=== PATIENT | male | born 1965 | race Caucasian/White ===

== ENCOUNTER 2024-03-20 13:40 | Inpatient (IN) | payer OTHER, SELFPAY ==
[2024-03-20] VITALS (12 sets, daily range): BP systolic 113–142; BP diastolic 63–83; PULSE 79–115; RESP 12–18; TEMP 36.8–37.5; O2SAT 97–100; BMI 29.7; BMI 30.1
--- NOTE | 2024-03-20 14:03 | ECG_ITS ---
Test Reason : QTC INTERVALS Blood Pressure : / mmHG Vent. Rate : 090 BPM Atrial Rate : 090 BPM P-R Int : 150 ms QRS Dur : 068 ms QT Int : 332 ms P-R-T Axes : 050 039 028 degrees QTc Int : 406 ms Normal sinus rhythm Normal ECG No previous ECGs available Referred By: Marlena Lawler Electronically Signed By:Zaki Guillen
--- NOTE | 2024-03-20 14:14 | ED.GIBLEED ---
HPI - GI Bleed General Chief complaint: GI Bleed Stated complaint: BLOOD IN VOMIT ABD PAIN Source: patient and old records reviewed Mode of arrival: EMS Limitations: no limitations History of Present Illness ED Provider: TREMAINE MAX Narrative: 58 yo male with PMH of cirrhosis has pancytopenia reports related to Hep C was treated and notes he recently tested clear (no prior EGD or GIB, no dx of varices, no prior paracentesis but has had ascites) - prior IVDA managed with suboxone now, mood disorder, PTSD, SI attempts. He was just transferred from [facility] to [facility] for psychiatric care. He has not been on lactulose, spironolactone or his usual meds for a while and they were not restarted on his admission. He was put on ibuprofen which he does not normally take at home - he is not on aspirin or thinners. After lunch today he notes he didn't feel great and vomited a large amount of blood with clots x 1. He has no abdominal pain. EMS did have picture showing large amount of blood in toilet with clots. hemoglobin 7/6 9.1, plts 76 section 21 from Piedad Smith MD complaint: gross hematemesis Onset (ago): hour(s) (2) Severity: moderate Relieving factors: none Exacerbating factors: none Context: liver disease Associated symptoms: denies other symptoms Treatments Prior to Arrival: none Related Data Allergies Allergy/AdvReac Type Severity Reaction Status Date / Time haloperidol [From Haldol] AdvReac Muscle Verified 03/20/24 13:57 cramps risperidone [From Risperdal] AdvReac Muscle Verified 03/20/24 13:57 cramps Review of Systems Review of Systems: Constitutional : No Weight loss, No Fever, No Chills ENT/Mouth : No sore throat, No Rhinorrhea Eyes: No Swelling, No Redness Cardiovascular : No Chest Pain, No SOB, NoEdema Respiratory : No Cough, No Sputum, No Wheezing Gastrointestinal : Positive Nausea, Positive Vomiting, no Diarrhea, no abdominal Pain, No Hematochezia, No Melena, pos hematochezia Genitourinary : No Dysuria, No Urinary Frequency, No Hematuria, No Urgency Musculoskeletal : No joint pain, No Myalgias, No Joint Swelling Skin : No Skin Lesions, No rash Neuro : No Weakness, No Numbness, No Dizziness, No Headache Psych : pos Anxiety/Panic, pos Depression All other systems reviewed and are negative. [facility] Social History Social History Advance Directives: No Advance Directives Information Provided: No Do you have a plan to hurt others: No Plan Physical Exam Vital Signs: Vital Signs: Last Vital Signs Temp 98.3 F 03/20/24 13:58 Pulse 103 H 03/20/24 13:58 Resp 17 03/20/24 13:58 BP 118/74 03/20/24 13:58 Pulse Ox 97 03/20/24 13:58 O2 Del Method Room Air 03/20/24 13:58 BMI result Body Mass Index 29.7 Appearance: Alert. Oriented X3. No acute distress. Eyes: Pupils equal, round and reactive to light. ENT: Pharynx normal. Dried blood around mouth Neck: Normal inspection. Neck supple. CVS: tachcyardic heart rate and rhythm. Pulses normal. Respiratory: No respiratory distress. Breath sounds normal. Abdomen: Soft and nontender. moderate ascites noted Rectal: refuses Skin: Skin warm and dry. Normal skin color. Normal skin turgor. Extremities: pitting edema 1+ bilateral lower extremity edema. No calf ttp Neuro: Oriented X 3. No motor deficit. No sensory deficit. Course Course Course Narrative: fentanyl for chronic R foot pain Medications Administered Generic Name Dose Route Start Last Admin Trade Name Freq PRN Reason Stop Dose Admin Pantoprazole Sodium 80 mg/ 100 mls @ 10 mls/hr 03/20/24 14:30 03/20/24 14:42 Sodium Chloride IV 8 mg/hr .Q10H ANNA 10 mls/hr Administration 8 MG/HR Ceftriaxone Sodium 1 gm/ 50 mls @ 100 mls/hr 03/20/24 14:40 03/20/24 14:57 Sodium Chloride IV 03/20/24 15:09 100 mls/hr ONCE ONE Administration Discontinued Medications Generic Name Dose Route Start Last Admin Trade Name Freq PRN Reason Stop Dose Admin Octreotide Acetate 50 mcg 03/20/24 14:40 03/20/24 15:00 Octreotide Acetate 100 Mcg/Ml Ampul IVPUSH 03/20/24 14:41 50 mcg ONCE ONE Administration Ondansetron HCl 4 mg 03/20/24 14:05 03/20/24 14:41 Ondansetron Hcl 4 Mg/2 Ml Vial IVPUSH 03/20/24 14:06 4 mg ONCE ONE Administration Pantoprazole Sodium 80 mg 03/20/24 14:15 03/20/24 14:41 Pantoprazole Sodium 40 Mg/10 Ml Vial IVPUSH 03/20/24 14:16 80 mg ONCE ONE Administration Medical Decision Making Medical Decision Making [facility] Narrative: 58 yo male with PMH of cirrhosis has pancytopenia reports related to Hep C was treated and notes he recently tested clear (no prior EGD or GIB, no dx of varices, no prior paracentesis but has had ascites) - prior IVDA managed with suboxone now, mood disorder, PTSD, SI attempts here with UGIB at this time it is unclear if he has varices, PUD or what the source of bleeding is. Will start on protonix, labs, IV lines x 2, albumin x 2 for now, empiric ceftriaxone (not for infection or severe sepsis but for prophylaxis), octreotide. Call to GI and Dr. Camarillo to come see patient. Differential Diagnosis Differential Diagnoses: The differential diagnosis associated with the presentation includes UGIB, PUD, variceal bleed gastritis Admission/Observation Consideration of admission/observation: Escalation of care including admission/observation considered admit for further management Consult Healthcare Provider Management of the patient was discussed with: Hospitalist (bryant babcockit - [place] 3pm) and Soil Conservation Teacher (Marquise at bedside) Lab Data [facility] Lab Attestation statement: I reviewed the patient's lab results. 03/20/24 14:09 03/20/24 14:09 Labs: Lab Results 03/20/24 Range/Units 14:09 WBC 6.7 (4.8-10.8) X10*3/uL RBC 2.24 L (4.60-5.80) X10*6/uL Hgb 7.5 L (14.0-18.0) g/dl Hct 21.8 L (42.0-52.0) % MCV 97.3 (80.0-98.0) fL MCH 33.5 H (27.0-33.0) pg MCHC 34.4 (31.0-36.0) g/dl RDW 14.9 (11.0-16.0) % Plt Count 97 L (160-400) X10*3/uL MPV 10.7 (9.4-12.4) fL Immature Gran % (Auto) 0.5 H (0.0-0.4) % Neut % (Auto) 82.2 H (45-73) % Lymph % (Auto) 6.0 L (20-40) % [place] % (Auto) 9.5 (2-11) % Eos % (Auto) 1.5 (0-4) % Baso % (Auto) 0.3 (0-2) % Lymph # (Auto) 0.4 L (1.2-4.9) X10*3/uL [place] # (Auto) 0.6 (0.1-1.2) X10*3/uL Eos # (Auto) 0.1 (0.0-0.4) X10*3/uL Baso # (Auto) 0.0 (0.0-0.2) X10*3/uL Abs Immat Gran (auto) 0.03 (0.00-0.03) X10*3/uL Absolute Neuts (auto) 5.5 (2.0-8.3) x10*3/uL Absolute Nucleated RBC 0.000 (0.0-0.012) X10*3/uL Nucleated RBC % (auto) 0.0 (0.0-0.2) /100WBC PT 18.8 H (11.1-13.3) SEC INR 1.5 H (0.9-1.1) Sodium 132 L (135-145) mmol/L Potassium 5.1 (3.3-5.1) mmol/L Chloride 107 (96-108) mmol/L Carbon Dioxide 25 (22-29) mmol/L Anion Gap 5 L (12-20) BUN 17 H (9-16) mg/dL Creatinine 0.62 (0.5-1.4) mg/dL Estim Creat Clear Calc 142.1 Estimated GFR > 60 Random Glucose 122 H (60-115) mg/dL Calcium 7.7 L (8.4-10.2) mg/dL Magnesium 1.6 (1.6-2.6) mg/dL Total Bilirubin 0.9 (0.0-1.0) mg/dL Direct Bilirubin 0.4 (0.0-0.5) mg/dL AST 82 H (5-37) U/L ALT 49 H (0-40) U/L Alkaline Phosphatase 127 H (39-117) U/L Ammonia 68 H (13-55) umol/L Total Protein 6.2 L (6.5-8.0) g/dL Albumin 2.2 L (3.5-5.0) g/dL Lipase 6 L (8-78) U/L Ethyl Alcohol < 10 mg/dL Blood Type O Positive Antibody Screen NEGATIVE Independent Interpretation I performed an independent interpretation of an: EKG Interpretation: Rate: 90 Rhythm: NSR [place]: normal Normal P waves. Normal SUSANA. Normal QRS complex. ST T wave : no MAR, normal qTC: 406 prior studies: no acute ischemia The study has been interpreted contemporaneously by me. . Independent Historian Clinical information obtained from an independent historian. History obtained from or confirmed by: EMS External Record Review External record reviewed: Outpatient record Critical Care Time Critical Care Time Critical Care Time: Yes Total Critical Care Time: 45 Attestation: review of records, protonix, octreotide, type and screen, 2 IV lines, medical consult, repeat assessments, admission I attest to this time spent taking care of the patient Discharge Plan Discharge Clinical Impression: Acute upper GI bleed, ABLA (acute blood loss anemia), Pancytopenia Patient Disposition: Admitted As Inpatient Print Language: Belarusian
[2024-03-20 14:21] LABS: MANUAL DIFF FLAG NO
[2024-03-20 14:22] LABS: Basophils Percent Auto 0.3 % (0-2); Eosinophils Absolute Auto 0.1 X10*3/uL (0.0-0.4); Eosinophils Percent Auto 1.5 % (0-4); Hematocrit 21.8 % (42.0-52.0); Hemoglobin 7.5 g/dl (14.0-18.0); Imm Gran Abs Auto 0.03 X10*3/uL (0.00-0.03); Imm Gran Pct Auto 0.5 % (0.0-0.4); Lymphocytes Absolute Auto 0.4 X10*3/uL (1.2-4.9); Mean Corpuscular HGB Conc 34.4 g/dl (31.0-36.0); Mean Corpuscular Hemoglobin 33.5 pg (27.0-33.0); Mean Corpuscular Volume 97.3 fL (80.0-98.0); Mean Platelet Volume 10.7 fL (9.4-12.4); Monocytes Absolute Auto 0.6 X10*3/uL (0.1-1.2); Monocytes Percent Auto 9.5 % (2-11); Neutrophils Absolute Auto 5.5 x10*3/uL (2.0-8.3); Neutrophils Percent Auto 82.2 % (45-73); Red Blood Count 2.24 X10*6/uL (4.60-5.80); Red Cell Distribution Width 14.9 % (11.0-16.0); White Blood Count 6.7 X10*3/uL (4.8-10.8)
[2024-03-20 14:23] LABS: Platelet Count 97 X10*3/uL (160-400)
[2024-03-20 14:30] LABS: Ammonia 68 umol/L (13-55); INTERNATIONAL NORM RATIO 1.5 (0.9-1.1); Prothrombin Time 18.8 SEC (11.1-13.3)
[2024-03-20 14:40] LABS: Alanine Aminotransferase 49 U/L (0-40); Albumin Level 2.2 g/dL (3.5-5.0); Alkaline Phosphatase 127 U/L (39-117); Anion Gap 5 (12-20); Aspartate Amino Transferase 82 U/L (5-37); Bilirubin Direct 0.4 mg/dL (0.0-0.5); Bilirubin Total 0.9 mg/dL (0.0-1.0); Blood Urea Nitrogen 17 mg/dL (9-16); Calcium 7.7 mg/dL (8.4-10.2); Carbon Dioxide 25 mmol/L (22-29); Chloride 107 mmol/L (96-108); Creatinine Clr Calc Pharmacy 142.1; Estimated Glomerular Filt Rate > 60; Ethanol < 10 mg/dL; Glucose Random 122 mg/dL (60-115); Lipase 6 U/L (8-78); Magnesium 1.6 mg/dL (1.6-2.6); Potassium 5.1 mmol/L (3.3-5.1); Sodium 132 mmol/L (135-145); Total Protein 6.2 g/dL (6.5-8.0)
[2024-03-20] MEDS: Pantoprazole Sodium 40 MG/10 ML VIAL 80 MG IVPUSH (14:41)
[2024-03-20] MEDS: ondansetron HCL 4 MG/2 ML VIAL IVPUSH (14:41)
[2024-03-20] MEDS: Pantoprazole Sodium 80 MG in 0.9 % Sodium Chloride 80 ML 10 MG IV (14:42)
[2024-03-20] MEDS: cefTRIAXone sodium 1 GM in 0.9 % Sodium Chloride 50 ML IV (14:57)
[2024-03-20] MEDS: Octreotide Acetate 100 MCG/ML AMPUL 50 MCG IVPUSH (15:00)
[2024-03-20] MEDS: 0.9 % Sodium Chloride 1,000 ML 80 ML IVCONT (15:10)
[2024-03-20] MEDS: Albumin Human 25 % 100 ML IV ×2 (15:11→21:01)
[2024-03-20] MEDS: fentaNYL citrate/PF 100 MCG/2 ML VIAL 50 MCG IVPUSH (15:14)
--- NOTE | 2024-03-20 15:29 | MHC.SHP ---
Pre-Procedural Eval Section A - 24 Hr Update-Section A only Date of Service: 03/20/24 The patient is an INPATIENT: Yes Changes since office visit: No Cold of Flu in the past 2 weeks, No New Medical Problems, No Changes in Medication and No Patient answered all questions The patient has been examined within 24 hours of the surgical procedure. The History & Physical has been completed within 30 days and I have reviewed it.: Yes Section B - Complete if H&P > 30 days Chief Complaint: BLOOD IN VOMIT ABD PAIN Allergies: Allergies Allergy/AdvReac Type Severity Reaction Status Date / Time haloperidol [From Haldol] AdvReac Muscle Verified 03/20/24 13:57 cramps risperidone [From Risperdal] AdvReac Muscle Verified 03/20/24 13:57 cramps Plan I have reviewed the history and physical and performed a pertinent physical examination on my patient. No changes have occurred unless specified. Time Spent With Patient Time: Total time managing care of this patient today ____ minutes.
--- NOTE | 2024-03-20 15:30 | PM.EVENT ---
Event Note Date of Service: 03/20/24 Event Note: GI consult dictated EGD planned meena for further evaluation of hematemesis. Mr Thomas is aware of risks and benefits and agrees to proceed. Time Spent With Patient Time: Total time managing care of this patient today ____ minutes.
--- NOTE | 2024-03-20 15:48 | PC.NURSE ---
Anesthesia Dr. Hernandez and Dr. Dubon made aware that patient last ate at noon. No new orders, may proceed with procedure.
--- NOTE | 2024-03-20 15:56 | PM.IMHP ---
History of Present Illness Date of Service: 03/20/24 Chief Complaint: Hematemesis 58-year-old gentleman with past medical history significant for cirrhosis, due to hepatitis-C treated and recently tested clear, no prior history of hematemesis, no prior EGD or colonoscopy, presented to [place] ED today from [facility], where he was admitted 5 days ago from [facility] for psychiatric care, patient with prior history of IV drug use now on Suboxone, history of mood disorder, PTSD, suicide attempts patient was given ibuprofen recently after lunch today he vomited large amount of blood with clots x1 associated with abdominal pain, he provide history of black stools 1 month ago while he was admitted at but no workup was obtained, and ED noted to have hematocrit of 21.8, hemoglobin 7.5, platelet of 97, ammonia level of 68, albumin 2.2, calcium 7.7, blood sugar 122 mildly elevated LFTs patient in the emergency room treated with IV Protonix, and placed on IV Protonix drip, IV Sandostatin, 1 unit of packed RBC ordered patient evaluated by Gastroenterology and is scheduled to undergo upper endoscopy, at present patient denies abdominal pain no recent black stools, no recurrent episodes of vomitus while in the emergency room, he is being admitted to [facility] with upper GI bleed concern for variceal/peptic ulcer disease/gastritis. Review of Systems Review of Systems: General no headache ,no dizziness no fever chills. CVS no chest pain, no palpitation. Respiratory no cough no sob Gastrointestinal no nausea ,no abdominal pain, no black stools, intermittent abdominal distention no urgency, no frequency Musculoskeletal no pain All other system are reviewed and are negative. [facility] Pertinent family history: Both parents are diseased, mother of cancer patient not aware, father at age 81 due to coronary artery disease Surgical History (Updated 03/20/24 @ 16:29 by Chantal Cordova) S/P hernia repair Social History Patient Tobacco Use Status: Current everyday Tobacco user Tobacco use type: Cigarette Cigarettes Per Day: 10 Smoked in Last 30 Days: Yes Use of substances other than those prescribed or required for medical reasons: Yes Are you DNR?: No Advance Directives: No Advance Directives Information Provided: No Do you have a plan to hurt others: No Plan Meds Allergies Allergy/AdvReac Type Severity Reaction Status Date / Time haloperidol [From Haldol] AdvReac Muscle Verified 03/20/24 13:57 cramps risperidone [From Risperdal] AdvReac Muscle Verified 03/20/24 13:57 cramps Active Medications: Current Medications Acetaminophen (Acetaminophen 325 Mg Tablet) 650 mg PO Q6H PRN PRN Reason: Pain, Mild (Pain Scale 1-3), fever or headache Calcium Carbonate (Calcium Carbonate 750 Mg Tab.Chew) 750 mg PO Q4H PRN PRN Reason: Heartburn Pantoprazole Sodium 80 mg/ (Sodium Chloride) 100 mls @ 10 mls/hr IV .Q10H ANNA Last Admin: 03/20/24 14:42 Dose: 8 mg/hr, 10 mls/hr Octreotide Acetate 500 mcg/ (Sodium Chloride) 501 mls @ 50.1 mls/hr IVCONT .Q10H ANNA Albumin Human (Kedbumin 25 %) 100 mls @ 100 mls/hr IV Q1H ANNA Stop: 03/20/24 16:59 Last Admin: 03/20/24 15:11 Dose: 100 mls/hr Sodium Chloride (Ns) 1,000 mls @ 80 mls/hr IVCONT .[id number] ANNA Last Admin: 03/20/24 15:10 Dose: 80 mls/hr Sodium Chloride (Ns) 100 mls @ 100 mls/hr IV ONCE ONE Stop: 03/20/24 16:18 Phytonadione 10 mg/ Sodium (Chloride) 51 mls @ 51 mls/hr IV STAT STA Stop: 03/20/24 16:37 Magnesium Hydroxide (Milk Of Magnesia 30 Ml Oral.Susp) 30 ml PO DAILY PRN PRN Reason: Constipation Melatonin (Melatonin 3 Mg Tablet) 6 mg PO BEDTIME PRN PRN Reason: Insomnia Ondansetron HCl (Ondansetron Hcl 4 Mg/2 Ml Vial) 4 mg IVPUSH Q8H PRN PRN Reason: Nausea and Vomiting Sodium Chloride (0.9 % Sodium Chloride Flush 3 Ml Syringe) 3 ml IVFLUSH QSHIFT [facility] Home Medications ?Medication ?Instructions ?Recorded ?Confirmed ?Last Taken ?Type Suboxone 03/20/24 Unknown History Vyvanse 03/20/24 Unknown History Zyprexa 03/20/24 Unknown History gabapentin 03/20/24 Unknown History Physical Exam Vital Signs and Narrative: Vital Signs: Last Vital Signs Temp 98.3 F 03/20/24 13:58 Pulse 103 H 03/20/24 13:58 Resp 17 03/20/24 13:58 BP 118/74 03/20/24 13:58 Pulse Ox 97 03/20/24 13:58 O2 Del Method Room Air 03/20/24 13:58 BMI result Body Mass Index 29.7 Const: Other: General awake alert, in no acute distress. Anicteric sclera Neck supple no JVD. CVS regular rate rhythm, Respiratory lungs clear to auscultation, no respiratory distress, no wheeze, no rhonchi. Gastrointestinal abdomen soft, non tender, distended, bowel sounds audible, no guarding , no rigidity. Extremities no edema. Neuro non focal , no asterixis Skin no rash Psych appropriate affect Results Labs 03/20/24 14:09 03/20/24 14:09 Labs: Laboratory Results - last 24 hr 03/20/24 14:09 MCV 97.3 MCH 33.5 H MCHC 34.4 RDW 14.9 Plt Count 97 L MPV 10.7 Immature Gran % (Auto) 0.5 H Neut % (Auto) 82.2 H Lymph % (Auto) 6.0 L [place] % (Auto) 9.5 Eos % (Auto) 1.5 Baso % (Auto) 0.3 Lymph # (Auto) 0.4 L [place] # (Auto) 0.6 Eos # (Auto) 0.1 Baso # (Auto) 0.0 Abs Immat Gran (auto) 0.03 Absolute Neuts (auto) 5.5 Absolute Nucleated RBC 0.000 Nucleated RBC % (auto) 0.0 PT 18.8 H INR 1.5 H Anion Gap 5 L Estim Creat Clear Calc 142.1 Estimated GFR > 60 Random Glucose 122 H Calcium 7.7 L Magnesium 1.6 Total Bilirubin 0.9 Direct Bilirubin 0.4 AST 82 H ALT 49 H Alkaline Phosphatase 127 H Ammonia 68 H Total Protein 6.2 L Albumin 2.2 L Lipase 6 L Ethyl Alcohol < 10 Blood Type O Positive Antibody Screen NEGATIVE Crossmatch See Detail Assessment and Plan (1) Acute upper GI bleed: Status: Acute (2) ABLA (acute blood loss anemia): Status: Acute Plan 58-year-old gentleman with past medical history significant for hepatitis-C, status post treatment, tested clear, former alcoholic, he is transferred from [facility] to [facility] residing there for last 4-5 days presented today with 1 episode of bloody vomitus with clots noted to have low H and H is being admitted to [facility] with a diagnosis of upper GI bleed. Acute Upper GI bleed ddx likely variceal/peptic ulcer disease/gastritis Low H&H 7.5/21.8 ,no prior H&H available Admit to telemetry Continue IV Protonix drip, IV Sandostatin drip, status post vitamin K DC NSAIDs, strongly advised to abstain from smoking Seen by GI will undergo upper endoscopy Monitor CBC Cirrhosis of liver likely due to hepatitis-C and prior history of alcohol use Mildly Elevated LFTs , low albumin, elevated INR, thrombocytopenia, ascites Has been treated for hepatitis-C Monitor closely needs to be followed with GI as outpatient. Mild acute hyponatremia likely due to cirrhosis will follow Elevated ammonia level likely due to underlying cirrhosis no confusion noted consider low-dose lactulose upon discharge Tobacco use disorder will place on nicotine patch counseling done Mood disorder med reconciliation pending Opiate use disorder on Suboxone currently residing at [facility] DVT prophylaxis compression boots Full code Patient will require 2 night inpatient hospitalization for management of acute GI bleed on IV Protonix drip and IV Sandostatin scheduled to undergo upper endoscopy. Quality Stroke Does the patient have a stroke diagnosis?: No VTE Prior VTE?: No VTE Risk Level:: Medical - moderate - high VTE Device Contraindication: N/A - Device Ordered VTE Drug Contraindication: Treatment Not Indicated
--- NOTE | 2024-03-20 16:32 | P.CONAN_ITS ---
HPI - Anesthesia Eval Consult details Narrative: 58 yo M admitted with acute GI bleed. Presenting for EGD. Hx is pertinent for IVDU on Suboxone and cirrhosis with pancytopenia. PMFSH Active Problems Active Problems: All Active Problems Pancytopenia (Acute) ABLA (acute blood loss anemia) (Acute) Acute upper GI bleed (Acute) Family History Family history of problems with anesthesia: No Surgical History Surgical History (Updated 03/20/24 @ 16:29 by Chantal Cordova) S/P hernia repair History of Problems with Anesthesia: No Social History Social History Advance Directives: No Advance Directives Information Provided: No Do you have a plan to hurt others: No Plan Meds Allergies Allergy/AdvReac Type Severity Reaction Status Date / Time haloperidol [From Haldol] AdvReac Muscle Verified 03/20/24 13:57 cramps risperidone [From Risperdal] AdvReac Muscle Verified 03/20/24 13:57 cramps Active Medications: Current Medications Acetaminophen (Acetaminophen 325 Mg Tablet) 650 mg PO Q6H PRN PRN Reason: Pain, Mild (Pain Scale 1-3), fever or headache Calcium Carbonate (Calcium Carbonate 750 Mg Tab.Chew) 750 mg PO Q4H PRN PRN Reason: Heartburn Pantoprazole Sodium 80 mg/ (Sodium Chloride) 100 mls @ 10 mls/hr IV .Q10H ANNA Last Admin: 03/20/24 14:42 Dose: 8 mg/hr, 10 mls/hr Octreotide Acetate 500 mcg/ (Sodium Chloride) 501 mls @ 50.1 mls/hr IVCONT .Q10H ANNA Albumin Human (Kedbumin 25 %) 100 mls @ 100 mls/hr IV Q1H ANNA Stop: 03/20/24 16:59 Last Admin: 03/20/24 15:11 Dose: 100 mls/hr Sodium Chloride (Ns) 1,000 mls @ 80 mls/hr IVCONT .[id number] ANNA Last Admin: 03/20/24 15:10 Dose: 80 mls/hr Phytonadione 10 mg/ Sodium (Chloride) 51 mls @ 51 mls/hr IV STAT STA Stop: 03/20/24 16:37 Magnesium Hydroxide (Milk Of Magnesia 30 Ml Oral.Susp) 30 ml PO DAILY PRN PRN Reason: Constipation Melatonin (Melatonin 3 Mg Tablet) 6 mg PO BEDTIME PRN PRN Reason: Insomnia Ondansetron HCl (Ondansetron Hcl 4 Mg/2 Ml Vial) 4 mg IVPUSH Q8H PRN PRN Reason: Nausea and Vomiting Sodium Chloride (0.9 % Sodium Chloride Flush 3 Ml Syringe) 3 ml IVFLUSH QSHIFT [facility] Home Medications ?Medication ?Instructions ?Recorded ?Confirmed ?Last Taken ?Type Suboxone 03/20/24 Unknown History Vyvanse 03/20/24 Unknown History Zyprexa 03/20/24 Unknown History gabapentin 03/20/24 Unknown History Exam Exam Date and Time: March 20, 2024 1632 Height,Weight and Vital Signs: Height 5 ft 8 in Weight 88.5 kg Last Vital Signs Temp 99.5 F 03/20/24 16:23 Pulse 82 03/20/24 16:23 Resp 16 03/20/24 16:23 BP 113/63 03/20/24 16:23 Pulse Ox 99 03/20/24 16:23 O2 Del Method Room Air 03/20/24 16:23 Pertinent Lab Results Pertinent Lab Results: Laboratory Tests 03/20/24 14:09 WBC 6.7 RBC 2.24 L Hgb 7.5 L Hct 21.8 L MCV 97.3 MCH 33.5 H MCHC 34.4 RDW 14.9 Plt Count 97 L MPV 10.7 Immature Gran % (Auto) 0.5 H Neut % (Auto) 82.2 H Lymph % (Auto) 6.0 L [place] % (Auto) 9.5 Eos % (Auto) 1.5 Baso % (Auto) 0.3 Lymph # (Auto) 0.4 L [place] # (Auto) 0.6 Eos # (Auto) 0.1 Baso # (Auto) 0.0 Abs Immat Gran (auto) 0.03 Absolute Neuts (auto) 5.5 Absolute Nucleated RBC 0.000 Nucleated RBC % (auto) 0.0 PT 18.8 H INR 1.5 H Sodium 132 L Potassium 5.1 Chloride 107 Carbon Dioxide 25 Anion Gap 5 L BUN 17 H Creatinine 0.62 Estim Creat Clear Calc 142.1 Estimated GFR > 60 Random Glucose 122 H Calcium 7.7 L Magnesium 1.6 Total Bilirubin 0.9 Direct Bilirubin 0.4 AST 82 H ALT 49 H Alkaline Phosphatase 127 H Ammonia 68 H Total Protein 6.2 L Albumin 2.2 L Lipase 6 L Ethyl Alcohol < 10 Blood Type O Positive Antibody Screen NEGATIVE Crossmatch See Detail Airway Mallampati Class: II TM Dist: >3cm Neck ROM: Full Loose/Missing/Broken Teeth: No (patient denies any loose or broken teeth) Heart: S1S2 Lungs: CTAB Assessment and Plan Assessment Anesthesia Assessment: Anesthesia Plan Discussed and Chart Reviewed Final Anesthetic Review Family History of Problems with Anesthesia: No History of Problems with Anesthesia: No NPO: No (had full lunch at noon today) ASA Class: III and Emergency Final Preanesthetic Review: No Changes in Pt Med Stat, Meds/Allgs Chart Reviewed, Consent Obtained/Reviewed and Anes Risks/Benef Reviewed Patient Risk: Intermediate Procedure Risk: Low Anesthetic Plan Anesthetic Plan: GA and Agree w/ Assess. and Plan Disposition: Standard PACU
[2024-03-20] MEDS: Octreotide Acetate 500 MCG in 0.9 % Sodium Chloride 500 ML 50.1 MCG IVCONT (16:46)
--- NOTE | 2024-03-20 16:55 | PC.NURSE ---
1 unit PRBC obtained from blood bank. Started with paper form in preop. Checked with this nurse and Janell Aldana RN.
--- NOTE | 2024-03-20 17:51 | PM.EVENT ---
Event Note Date of Service: 03/20/24 Event Note: EGD dictated large varices, 1 with adherent clot and no active bleeding. 2 bands placed at site of clot 4 bands placed distally Rec monitor hematocrit continue octreotide. Time Spent With Patient Time: Total time managing care of this patient today ____ minutes.
--- NOTE | 2024-03-20 17:54 | PM.OP ---
Brief Operative Note Date of Service: 03/20/24 Pre-op diagnosis: GI bleed Post-op diagnosis: same (esophageal varices) Procedure: EGD Surgeon: Silviano Camarillo MD Anesthesia: GETA Was an Loss Prevention Investigator used for this Procedure?: No Estimated blood loss (mL): 0 Pathology: none sent Condition: stable Disposition: PACU
[2024-03-20] MEDS: Phytonadione (Vit K1) 10 MG in 0.9 % Sodium Chloride 50 ML 51 MG IV (18:00)
--- NOTE | 2024-03-20 20:45 | PHA.MEDREC ---
Pharmacy Consult ? Medication Reconciliation Pharmacy has completed the medication reconciliation. Utilized list from [facility] [phone] to confirm med list
[2024-03-20] MEDS: Buprenorphine/Naloxone 8/2 mg TAB.SUBL 1 TAB SUBLINGUAL (21:01)
[2024-03-20] MEDS: Gabapentin 600 MG TABLET PO (21:01)
[2024-03-20] MEDS: Nicotine 14 MG PATCH.TD24 TRANSDERMA (21:02)
[2024-03-20 21:42] LABS: Hematocrit 21.9 % (42.0-52.0); Hemoglobin 7.2 g/dl (14.0-18.0); Mean Corpuscular HGB Conc 32.9 g/dl (31.0-36.0); Mean Corpuscular Hemoglobin 31.4 pg (27.0-33.0); Mean Corpuscular Volume 95.6 fL (80.0-98.0); Mean Platelet Volume 11.8 fL (9.4-12.4); Red Blood Count 2.29 X10*6/uL (4.60-5.80); Red Cell Distribution Width 15.9 % (11.0-16.0); White Blood Count 2.8 X10*3/uL (4.8-10.8)
[2024-03-20 21:46] LABS: Platelet Count 64 X10*3/uL (160-400)
[2024-03-20] MEDS: Pantoprazole Sodium 40 MG/10 ML VIAL IVPUSH (21:50)
[2024-03-20] MEDS: HYDROmorphone HCl 1 MG/ML SYRINGE IVPUSH (21:53)
[2024-03-21] VITALS (13 sets, daily range): BP systolic 109–124; BP diastolic 60–75; PULSE 74–90; RESP 16–20; TEMP 36.7–37.6; O2SAT 95–99
[2024-03-21] MEDS: HYDROmorphone HCl 1 MG/ML SYRINGE IVPUSH ×3 (01:09→10:43)
[2024-03-21] MEDS: 0.9 % Sodium Chloride Flush 3 ML SYRINGE IVFLUSH ×3 (01:13→20:28)
[2024-03-21] MEDS: Octreotide Acetate 500 MCG in 0.9 % Sodium Chloride 500 ML 50.1 MCG IVCONT ×3 (02:50→23:29)
--- NOTE | 2024-03-21 02:57 | CONS_ITS ---
DATE OF SERVICE: 03/20/2024 REFERRING PHYSICIAN: Dr. Ellsworth REASON FOR CONSULTATION: Hematemesis. HISTORY OF PRESENT ILLNESS: The patient is a pleasant 58-year-old man who was admitted to the emergency department after developing symptoms of nausea around lunchtime. He vomited a large amount of bright red blood and clots. He presented to the emergency department. In the emergency department, he had lab work done, which documented a hemoglobin of 7.5, which was down from 9.1 on his admission to the psychiatric hospital where he has been staying. He has been receiving Motrin for foot pain and does not drink alcohol currently, although he did have until about 15 years ago. He does smoke. He has a history of hepatitis C and cirrhosis. The hepatitis C was treated and has been cleared by his report. He has never had upper endoscopy or colonoscopy, but has had problems with ascites, which have been managed with diuretics and did not require paracentesis. In the emergency department, he has been treated with octreotide, Protonix, and is receiving transfusion of 1 unit of packed red blood cells. PAST MEDICAL HISTORY: 1. Cirrhosis with pancytopenia and hep C and alcohol abuse in the past. 2. History of intravenous drug abuse with narcotic dependence on Suboxone. 3. Mood disorder with history of PTSD and suicide attempts. He had been evaluated in [place] at [facility] and at [facility] and was transferred here for psychiatric care prior to his hematemesis. 4. Umbilical hernia repair. CURRENT MEDICATIONS: His current medication list is reviewed in the chart. ALLERGIES: HALDOL AND RISPERIDONE. FAMILY HISTORY: This is reviewed with the patient and is negative for upper GI malignancy. A brother has had colon problems and has had colostomy takedown and reanastomosis for unspecified colonic issues. SOCIAL HISTORY: Drug use and alcohol use are as above. REVIEW OF SYSTEMS: SKIN: No pruritus. HEENT: Negative. CARDIOPULMONARY: He denies shortness of breath or chest pain. He does admit to being apprehensive. GASTROINTESTINAL: As above. GENITOURINARY: Negative. NEUROPSYCHIATRIC: Negative. PHYSICAL EXAMINATION: GENERAL: Shows a pleasant male, sitting comfortably in bed, complaining of anxiety. VITAL SIGNS: Reviewed in electronic medical record. He is slightly tachycardic at 103 with a systolic blood pressure of 118. SKIN: Anicteric. HEENT: Shows no scleral icterus. NECK: Without lymphadenopathy or thyromegaly. LUNGS: Clear. HEART: Shows a regular rate and rhythm. S1, S2. No murmur. ABDOMEN: Protuberant and it is difficult to tell if there is ascites present. There is a surgical scar under his umbilicus from his prior surgery. There is no guarding, tenderness, or rebound. EXTREMITIES: Showed trace edema. LABORATORY STUDIES: Reviewed. IMPRESSION: Upper gastrointestinal bleeding. The differential diagnosis for this includes upper gastrointestinal bleeding from an NSAID induced ulcer, because of his recent use of ibuprofen. Other possible causes include erosive esophagitis, esophageal varices, portal hypertensive gastropathy, and malignancy. I have discussed endoscopy with him, which I think should be done as soon as possible because of the possibility of this being a variceal bleed. He has been started on octreotide and proton pump inhibitor and appears stable for endoscopy at this time. I have discussed risks and benefits of the procedure with him. He understands these and agrees to proceed. MD KHALIF Hardy/GUCCI / [phone]
--- NOTE | 2024-03-21 04:28 | OP_ITS ---
DATE OF SERVICE: 03/20/2024 SURGEON: Silviano Camarillo MD INDICATIONS: Upper GI bleeding. PREOPERATIVE DIAGNOSIS: POSTOPERATIVE DIAGNOSIS: PROCEDURE PERFORMED: Upper endoscopy with banding of esophageal varices. ESTIMATED BLOOD LOSS: COMPLICATIONS: ANESTHESIA: General anesthesia. ASSISTANTS: SPECIMENS: DESCRIPTION OF PROCEDURE: A history and physical was performed. The risks and benefits of the procedure were explained to the patient. Informed consent was obtained. The patient was placed in the left lateral decubitus position. The Olympus video gastroscope was introduced into the esophagus, stomach, and duodenum. Examination was performed. The scope was removed. He tolerated the procedure well and was returned to the recovery area in stable condition. FINDINGS: Esophagus: The esophagus showed large grade 4 varices with no active bleeding. At 35 cm, there was a clot attached to one of the varices. Stomach: The stomach showed clotted blood and retained food. No active bleeding site was identified in the stomach. There was a large clot in the fundus, which could not be moved. Duodenum: There was clot and food in the duodenal bulb and 2nd portion. This was gently manipulated and cleared with irrigation. No ulcer was identified. No bleeding site was identified. The scope was removed, and the banding attachment was applied. Two bands were placed successfully at the site of the adherent clot, which was likely the source for his bleeding. Four other bands were placed in the distal esophagus just above the EG junction. There was no bleeding at the termination of the procedure. The stomach was decompressed and the scope was removed. IMPRESSION: Esophageal varices, likely the source of the patient's recent bleeding. RECOMMENDATION: 1. Monitor hematocrit and transfuse as appropriate. 2. Continue octreotide for 72 hours. 3. Consider beta-javier for prevention of recurrent bleeding. 4. If rebleeding occurs, I would recommend transfer to the ICU and to a tertiary care center with capability for TIPS given the large size of his varices. MD KHALIF Hardy/GUCCI / [id number]
[2024-03-21] MEDS: Omeprazole 40 MG CAPSULE.DR PO (05:47)
[2024-03-21 08:09] LABS: Basophils Percent Auto 0.4 % (0-2); Eosinophils Percent Auto 0.4 % (0-4); Hematocrit 22.6 % (42.0-52.0); Hemoglobin 7.9 g/dl (14.0-18.0); Imm Gran Abs Auto 0.01 X10*3/uL (0.00-0.03); Imm Gran Pct Auto 0.4 % (0.0-0.4); Lymphocytes Absolute Auto 0.4 X10*3/uL (1.2-4.9); Lymphocytes Percent Auto 14.5 % (20-40); MANUAL DIFF FLAG SCAN; Mean Corpuscular Hemoglobin 32.9 pg (27.0-33.0); Mean Corpuscular Volume 94.2 fL (80.0-98.0); Mean Platelet Volume 11.4 fL (9.4-12.4); Monocytes Absolute Auto 0.2 X10*3/uL (0.1-1.2); Monocytes Percent Auto 8.8 % (2-11); Neutrophils Absolute Auto 1.9 x10*3/uL (2.0-8.3); Neutrophils Percent Auto 75.5 % (45-73); Platelet Count 59 X10*3/uL (160-400); Red Cell Distribution Width 15.9 % (11.0-16.0); SCAN SMEAR FLAG 1; White Blood Count 2.5 X10*3/uL (4.8-10.8)
[2024-03-21 08:16] LABS: INTERNATIONAL NORM RATIO 1.6 (0.9-1.1)
[2024-03-21 08:24] LABS: Anion Gap 10 (12-20); Blood Urea Nitrogen 22 mg/dL (9-16); Calcium 7.6 mg/dL (8.4-10.2); Carbon Dioxide 22 mmol/L (22-29); Chloride 109 mmol/L (96-108); Creatinine Clr Calc Pharmacy 140.8; Estimated Glomerular Filt Rate > 60; Glucose Random 133 mg/dL (60-115); Potassium 4.8 mmol/L (3.3-5.1); Sodium 136 mmol/L (135-145)
[2024-03-21 08:40] LABS: SLIDE REVIEW VERIFIED
--- NOTE | 2024-03-21 10:54 | P.PNIM_ITS ---
Subjective Subjective Date of Service: 03/21/24 Interval History: f/u UGIB, acute bloos loss enami, varicieal bleed s/p egd with banding yesterday, no active bleed, h/h stable following transfusion complaining of hunger and gettting iritating Physical Exam 2 Vital Signs: Vital Signs: Last Vital Signs Temp 98.4 F 03/21/24 08:00 Pulse 76 03/21/24 08:00 Resp 18 03/21/24 08:00 BP 122/63 03/21/24 08:00 Pulse Ox 96 03/21/24 08:00 O2 Del Method Room Air 03/21/24 08:00 O2 Flow Rate 2 03/20/24 17:59 BMI result Body Mass Index 30.1 Const: Other: General: AO X 3, no acute distress Resp: CTA bilateral CVS: S1,S2,RRR GI: +BS, NT, no distention Skin: No rash Neuro: motor grossly intact Psych: appropriate affect Objective Data Active Medications Acetaminophen (Acetaminophen 325 Mg Tablet) 650 mg PO Q6H PRN PRN Reason: Pain, Mild (Pain Scale 1-3), fever or headache Calcium Carbonate (Calcium Carbonate 750 Mg Tab.Chew) 750 mg PO Q4H PRN PRN Reason: Heartburn Hydromorphone HCl (Hydromorphone Hcl 1 Mg/Ml Syringe) 1 mg IVPUSH Q3H PRN; Protocol PRN Reason: Pain, Severe (Pain Scale 7-10) Last Admin: 03/21/24 10:43 Dose: 1 mg Documented By: PODMORP Octreotide Acetate 500 mcg/ (Sodium Chloride) 501 mls @ 50.1 mls/hr IVCONT .Q10H [facility] Last Admin: 03/21/24 02:50 Dose: 50 mcg/hr, 50.1 mls/hr Documented By: DINO Magnesium Hydroxide (Milk Of Magnesia 30 Ml Oral.Susp) 30 ml PO DAILY PRN PRN Reason: Constipation Melatonin (Melatonin 3 Mg Tablet) 6 mg PO BEDTIME PRN PRN Reason: Insomnia Nicotine (Nicotine 14 Mg Patch.Td24) 14 mg TRANSDERMA BEDTIME [facility] Last Admin: 03/20/24 21:02 Dose: 14 mg Documented By: DINO Omeprazole (Omeprazole 40 Mg Capsule.) 40 mg PO DAILY@0630 [facility] Last Admin: 03/21/24 05:47 Dose: 40 mg Documented By: DINO Ondansetron HCl (Ondansetron Hcl 4 Mg/2 Ml Vial) 4 mg IVPUSH Q8H PRN PRN Reason: Nausea and Vomiting Pantoprazole Sodium (Pantoprazole Sodium 40 Mg/10 Ml Vial) 40 mg IVPUSH ONCE [facility] Last Admin: 03/20/24 21:50 Dose: 40 mg Documented By: DINO Sodium Chloride (0.9 % Sodium Chloride Flush 3 Ml Syringe) 3 ml IVFLUSH QSHIFT [facility] Last Admin: 03/21/24 01:13 Dose: 3 ml Documented By: DINO Labs 03/21/24 07:34 03/21/24 07:34 Labs: Laboratory Results - last 24 hr 03/20/24 03/20/24 03/21/24 14:09 20:16 07:34 MCV 97.3 95.6 94.2 MCH 33.5 H 31.4 32.9 MCHC 34.4 32.9 35.0 RDW 14.9 15.9 15.9 Plt Count 97 L 64 L D 59 L MPV 10.7 11.8 11.4 Immature Gran % (Auto) 0.5 H 0.4 Neut % (Auto) 82.2 H 75.5 H Lymph % (Auto) 6.0 L 14.5 L [place] % (Auto) 9.5 8.8 Eos % (Auto) 1.5 0.4 Baso % (Auto) 0.3 0.4 Lymph # (Auto) 0.4 L 0.4 L [place] # (Auto) 0.6 0.2 Eos # (Auto) 0.1 0.0 Baso # (Auto) 0.0 0.0 Abs Immat Gran (auto) 0.03 0.01 Absolute Neuts (auto) 5.5 1.9 L Absolute Nucleated RBC 0.000 0.000 0.000 Nucleated RBC % (auto) 0.0 0.0 0.0 Smear Tech's Comments VERIFIED PT 18.8 H 19.0 H INR 1.5 H 1.6 H Anion Gap 5 L 10 L Estim Creat Clear Calc 142.1 140.8 Estimated GFR > 60 > 60 Random Glucose 122 H 133 H Calcium 7.7 L 7.6 L Magnesium 1.6 Total Bilirubin 0.9 Direct Bilirubin 0.4 AST 82 H ALT 49 H Alkaline Phosphatase 127 H Ammonia 68 H Total Protein 6.2 L Albumin 2.2 L Lipase 6 L Ethyl Alcohol < 10 Blood Type O Positive Antibody Screen NEGATIVE Crossmatch See Detail Assessment and Plan (1) Pancytopenia: Status: Acute (2) ABLA (acute blood loss anemia): Status: Acute (3) Acute upper GI bleed: Status: Acute Plan 58/m w/ Hep C status treated, former alcoholic, he is transferred from [facility] [place] to [facility] residing there for last 4-5 days presented with an episode of bloody vomitus with clots noted to have low H and H, underwent emergent EGD with banding of varices #Acute Upper GI bleed d/t variceal bleed #Acute blood loss anemia (ABLA) #Pancytopenia d/t cirrhosis EGD 03/20: large varices, 1 with adherent clot and no active bleeding. 2 bands placed at site of clot 4 bands placed distally Rec monitor hematocrit continue octreotide. s/p 3 units of RBC, H/H is stable continue monitorin H/H continue Ocreotide advance diet starting with clears #Cirrhosis of liver likely due to hepatitis-C and prior history of alcohol use Mildly Elevated LFTs , low albumin, elevated INR, thrombocytopenia, ascites Has been treated for hepatitis-C Monitor closely needs to be followed with GI as outpatient. #Mild acute hyponatremia likely due to cirrhosis will follow #Elevated ammonia level likely due to underlying cirrhosis no confusion noted consider low-dose lactulose upon discharge #Tobacco use disorder NRT, councelling #Mood disorder med reconciliation pending #Opiate use disorder on Suboxone currently residing at [facility] DVT prophylaxis compression boots Full code need for inpatient: Close monitoring for acute variceal bleed, needing close monitoring Quality Stroke Does the patient have a stroke diagnosis?: No VTE Prior VTE?: No VTE Risk Level:: Medical - moderate - high VTE Device Contraindication: N/A - Device Ordered VTE Drug Contraindication: Treatment Not Indicated
--- NOTE | 2024-03-21 12:14 | P.PNGI_ITS ---
Subjective Subjective Date of Service: 03/21/24 Interval History: no reported bleeding he wants to eat tolerated clears Critical Care Time (minutes): 0 Physical Exam 2 Vital Signs: Vital Signs: Last Vital Signs Temp 98.4 F 03/21/24 08:00 Pulse 76 03/21/24 08:00 Resp 18 03/21/24 08:00 BP 122/63 03/21/24 08:00 Pulse Ox 96 03/21/24 08:00 O2 Del Method Room Air 03/21/24 08:00 O2 Flow Rate 2 03/20/24 17:59 BMI result Body Mass Index 30.1 GI: Other: abdomen is soft and nontender Objective Data Labs 03/21/24 07:34 03/21/24 07:34 Procedures Date of Service Date of Service: 03/21/24 Progress Note: A&P Assessment and plan (1) Acute upper GI bleed: Status: Acute Plan variceal bleeding stable hct still low 3 units ordered, 2 given ok to restart po meds advance diet advised pt he needs 72 hrs of iv octreotide. Time Spent With Patient Time: Total time managing care of this patient today ____ minutes. Quality Stroke Does the patient have a stroke diagnosis?: No VTE Prior VTE?: No VTE Risk Level:: Medical - moderate - high VTE Device Contraindication: N/A - Device Ordered VTE Drug Contraindication: Treatment Not Indicated
--- NOTE | 2024-03-21 12:42 | MHC.RECOVRN ---
Met with pt in [id number]? after consult placed to Addiction Medicine for pt on suboxone and untreated chronic pain.? Chart review completed and received report from floor nurse Josué. Pt had presented to the ED via ambulance for c/o rusty red blood in the stool. EMS reports large amounts of bloody stool and clots. Pt was admitted to the floor for management of acute GI bleed on IV Protonix drip and IV Sandostatin scheduled to undergo upper endoscopy. ? Pt has order for pain management consisting of Dilaudid 1mg IV push Q 3 hours PRN.? He was also previously ordered (gabapentin 600mg TID which he reports helps with his pain ) and suboxone 8-2mg TID for MOUD.? Upon assessment pt is lying in bed awake and alert.? He reports good pain control at this time but is upset he is not getting his suboxone consistently and would like to resume his gabapentin and be taken off his dilaudid.? ? He denies any W/D sx and none observed.?? Pt reports he has been on suboxone for approx 1 year and has maintained sobriety for that period.? He did state that having the IV and getting dilaudid is very triggering for him and would like it D/C and the gabapentin and suboxone re started regularly.? He did receive 8mg suboxone last jesse without issues and reports that prior to his hospitalization on 03/20 at 1354 he was receiving his suboxone 8-2mg TID regularly (confirmed by med rec).? T/W provided pt with education on using Suboxone and Dilaudid.? I spoke with the pt's nurse and messaged provided asking for gabapentin and suboxone to restart and Dialudid to be D/C as per pr request. ? Provider agreed and ordered meds.??? I will check in with pt tomorrow to assess status and ACS services available PRN while pt hospitalized. Report to ACS team and nurse Moses.
--- NOTE | 2024-03-21 13:02 | HO.POSTANES ---
Post Anesthesia Evaluation Post Anesthesia Evaluation Date of Service: 03/20/24 Vital Signs: Vital Signs Temp Pulse Resp BP Pulse Ox O2 Del Method 03/21/24 12:00 98.5 F 78 18 119/60 96 Room Air 03/21/24 08:00 98.4 F 76 18 122/63 96 Room Air 03/21/24 04:53 98.4 F 74 16 117/65 03/21/24 03:55 99.0 F 81 18 109/65 97 Room Air 03/21/24 02:59 98.7 F 74 16 119/63 03/21/24 02:42 98.4 F 74 17 116/63 03/21/24 02:21 99.6 F 77 18 109/66 Anesthesia: General Mental Status: Awake Pain Control: Satisfactory Nausea/Vomiting: None Hydration: Adequate Anesthesia-Related Issues: No Anes. Related Issues
[2024-03-21] MEDS: Buprenorphine/Naloxone 8/2 mg FILM 1 FILM BUCCAL ×2 (14:45→20:24)
[2024-03-21] MEDS: Gabapentin 600 MG TABLET PO ×2 (14:45→20:24)
--- NOTE | 2024-03-21 14:45 | MHC.CM.PN ---
PT REPORTS HE LIVES IN [facility] WITH HIS S/O HE IS INDEPENDENT WITH CARE AND MOBILITY PT SAYS HE IS ACTIVE WITH A MED PRESCRIBER, CATHIE ALONSO HE DECLINES TO COMPLETE A HCP PCP: CHRISTIAN VANDANALUIS PT REPORTS HE USUALLY TAKES GABAPENTIN, VYVANSE AND THREE SUBOXONE STRIPS PER DAY HE REPORTS SINCE ARRIVAL HE HAS ONLY HAD ONE DOSE OF SUBOXONE AND THAT WAS YESTERDAY CM INQUIRED WITH PTS RN WHO INDICATED PTS MEDS WERE DUE AT 1500 PER ASSISTANT WOM[employer]'S [employer] COACH NOTE, SOME OF PTS MEDS WERE HELD DUE TO THE PAIN MEDS HE WAS TAKING WHICH HE REQUESTED TO BE TAKEN OFF TODAY CM REMINDED PT OF THE DISCUSSION WITH THE ASSISTANT WOMEN'S SOCCER COACH AND THE REASONS WHY HE DID NOT GET SOME OF HIS MEDS THIS MORNING PT STATES HE DOES REMEMBER NOW, BUT IS STILL WORRIED HE WILL NOT GET HIS CLAUDIO LOGAN AWARE PT WILL LIKELY DC HOME, HE DENIES FEELING LIKE HE WOULD NEED TO RETURN TO [facility]
[2024-03-21 15:21] LABS: Hemoglobin 8.5 g/dl (14.0-18.0); Mean Platelet Volume 12.2 fL (9.4-12.4); PLT CLUMP 1; Red Blood Count 2.66 X10*6/uL (4.60-5.80); Red Cell Distribution Width 16.1 % (11.0-16.0)
[2024-03-21 15:38] LABS: White Blood Count 3.3 X10*3/uL (4.8-10.8)
[2024-03-21 15:46] LABS: Platelet Count 68 X10*3/uL (160-400)
[2024-03-21] MEDS: Amphetamine Mixed Salts 10 MG TABLET PO (16:30)
[2024-03-21] MEDS: OLANZapine 7.5 MG TABLET PO (20:26)
[2024-03-22 03:25] VITALS: BP 120/72; PULSE 71; RESP 18; TEMP 36.8; O2SAT 97
[2024-03-22] MEDS: Omeprazole 40 MG CAPSULE.DR PO (06:24)
[2024-03-22 07:33] LABS: Hematocrit 23.2 % (42.0-52.0); Hemoglobin 7.8 g/dl (14.0-18.0); Mean Corpuscular HGB Conc 33.6 g/dl (31.0-36.0); Mean Corpuscular Hemoglobin 31.8 pg (27.0-33.0); Mean Corpuscular Volume 94.7 fL (80.0-98.0); Mean Platelet Volume 11.5 fL (9.4-12.4); Red Blood Count 2.45 X10*6/uL (4.60-5.80)
[2024-03-22 07:47] LABS: Platelet Count 64 X10*3/uL (160-400); White Blood Count 2.2 X10*3/uL (4.8-10.8)
[2024-03-22 08:00] VITALS: BP 120/73; PULSE 68; RESP 18; TEMP 36.8; O2SAT 100
[2024-03-22] MEDS: Octreotide Acetate 500 MCG in 0.9 % Sodium Chloride 500 ML 50.1 MCG IVCONT (08:22)
[2024-03-22] MEDS: Amphetamine Mixed Salts 10 MG TABLET PO (08:23)
[2024-03-22] MEDS: Gabapentin 600 MG TABLET PO (08:23)
[2024-03-22] MEDS: Buprenorphine/Naloxone 8/2 mg FILM 1 FILM BUCCAL (08:23)
[2024-03-22] MEDS: 0.9 % Sodium Chloride Flush 3 ML SYRINGE IVFLUSH (08:23)
--- NOTE | 2024-03-22 09:45 | P.PNIM_ITS ---
Subjective Subjective Date of Service: 03/22/24 Interval History: f/u UGIB, acute bloos loss enami, varicieal bleed s/p egd with banding 2 days ago, no active bleed, h/h is slightly down from yesterday, reports black stool with some maroon Physical Exam 2 Vital Signs: Vital Signs: Last Vital Signs Temp 98.3 F 03/22/24 08:00 Pulse 68 03/22/24 08:00 Resp 18 03/22/24 08:00 BP 120/73 03/22/24 08:00 Pulse Ox 100 03/22/24 08:00 O2 Del Method Room Air 03/22/24 08:00 O2 Flow Rate 2 03/20/24 17:59 BMI result Body Mass Index 30.1 General: AO X 3, no acute distress Resp: CTA bilateral CVS: S1,S2,RRR GI: +BS, NT, no distention Skin: No rash Neuro: motor grossly intact Psych: appropriate affect Const: Other: General: AO X 3, no acute distress Resp: CTA bilateral CVS: S1,S2,RRR GI: +BS, NT, no distention Skin: No rash Neuro: motor grossly intact Psych: appropriate affect Objective Data Active Medications Acetaminophen (Acetaminophen 325 Mg Tablet) 650 mg PO Q6H PRN PRN Reason: Pain, Mild (Pain Scale 1-3), fever or headache Amphetamine/Dextroamphetamine (Amphetamine Mixed Salts 10 Mg Tablet) 10 mg PO DAILY [facility] Last Admin: 03/22/24 08:23 Dose: 10 mg Documented By: PERRY Buprenorphine/Naloxone (Buprenorphine/Naloxone 8/2 Mg Film) 1 film BUCCAL TID [facility] Last Admin: 03/22/24 08:23 Dose: 1 film Documented By: PERRY Calcium Carbonate (Calcium Carbonate 750 Mg Tab.Chew) 750 mg PO Q4H PRN PRN Reason: Heartburn Docusate Sodium (Docusate Sodium 100 Mg Capsule) 100 mg PO BID PRN PRN Reason: Constipation Gabapentin (Gabapentin 600 Mg Tablet) 600 mg PO TID [facility] Last Admin: 03/22/24 08:23 Dose: 600 mg Documented By: PERRY Hydromorphone HCl (Hydromorphone Hcl 1 Mg/Ml Syringe) 1 mg IVPUSH Q3H PRN; Protocol PRN Reason: Pain, Severe (Pain Scale 7-10) Last Admin: 03/21/24 10:43 Dose: 1 mg Documented By: JUSTINMORP Octreotide Acetate 500 mcg/ (Sodium Chloride) 501 mls @ 50.1 mls/hr IVCONT .Q10H [facility] Last Admin: 03/22/24 08:22 Dose: 50 mcg/hr, 50.1 mls/hr Documented By: PERRY Magnesium Hydroxide (Milk Of Magnesia 30 Ml Oral.Susp) 30 ml PO DAILY PRN PRN Reason: Constipation Melatonin (Melatonin 3 Mg Tablet) 6 mg PO BEDTIME PRN PRN Reason: Insomnia Nicotine (Nicotine 14 Mg Patch.Td24) 14 mg TRANSDERMA BEDTIME [facility] Last Admin: 03/21/24 23:30 Dose: Not Given Documented By: DINO Non-Admin Reason: Patient Refused Olanzapine (Olanzapine 7.5 Mg Tablet) 7.5 mg PO BEDTIME [facility] Last Admin: 03/21/24 20:26 Dose: 7.5 mg Documented By: DINO Omeprazole (Omeprazole 40 Mg Capsule.) 40 mg PO DAILY@0630 [facility] Last Admin: 03/22/24 06:24 Dose: 40 mg Documented By: DINO Ondansetron HCl (Ondansetron Hcl 4 Mg/2 Ml Vial) 4 mg IVPUSH Q8H PRN PRN Reason: Nausea and Vomiting Pantoprazole Sodium (Pantoprazole Sodium 40 Mg/10 Ml Vial) 40 mg IVPUSH ONCE [facility] Last Admin: 03/20/24 21:50 Dose: 40 mg Documented By: DINO Sodium Chloride (0.9 % Sodium Chloride Flush 3 Ml Syringe) 3 ml IVFLUSH QSHIFT [facility] Last Admin: 03/22/24 08:23 Dose: 3 ml Documented By: PERRY Labs 03/22/24 06:58 03/21/24 07:34 Labs: Laboratory Results - last 24 hr 03/21/24 03/22/24 14:58 06:58 MCV 94.0 94.7 MCH 32.0 31.8 MCHC 34.0 33.6 RDW 16.1 H 16.0 Plt Count 68 L 64 L MPV 12.2 11.5 Absolute Nucleated RBC 0.000 0.000 Nucleated RBC % (auto) 0.0 0.0 Assessment and Plan (1) Pancytopenia: Status: Acute (2) ABLA (acute blood loss anemia): Status: Acute (3) Acute upper GI bleed: Status: Acute Plan 58/m w/ Hep C status treated, former alcoholic, [place] [facility] [place] [facility] residing there for last 4-5 days presented with an episode of bloody vomitus with clots noted to have low H and H, underwent emergent EGD with banding of varices #Acute Upper GI bleed d/t variceal bleed #Acute blood loss anemia (ABLA) #Pancytopenia d/t cirrhosis EGD 03/20: large varices, 1 with adherent clot and no active bleeding. 2 bands placed at site of clot 4 bands placed distally Rec monitor hematocrit continue octreotide. s/p 3 units of RBC, H/H is stable continue monitorin H/H continue Ocreotide for 72 hours advance diet starting with clears #Cirrhosis of liver likely due to hepatitis-C and prior history of alcohol use Mildly Elevated LFTs , low albumin, elevated INR, thrombocytopenia, ascites Has been treated for hepatitis-C Monitor closely needs to be followed with GI as outpatient. #Mild acute hyponatremia likely due to cirrhosis will follow, resolved #Elevated ammonia level likely due to underlying cirrhosis no confusion noted consider low-dose lactulose upon discharge #Tobacco use disorder NRT, councelling #Mood disorder med reconciliation pending #Opiate use disorder on Suboxone currently residing at [facility] DVT prophylaxis compression boots Full code need for inpatient: Close monitoring for acute variceal bleed, needing close monitoring Quality Stroke Does the patient have a stroke diagnosis?: No VTE Prior VTE?: No VTE Risk Level:: Medical - moderate - high VTE Device Contraindication: N/A - Device Ordered VTE Drug Contraindication: Treatment Not Indicated
--- NOTE | 2024-03-22 11:40 | MHC.RECOVRN ---
Met with pt in to follow up and provide support.? Pt laying in bed resting comfortably. Pt reports feeling much better. He is again taking his suboxone and gabapentin as previously ordered and is comfortable. No W/D reported or observed during visit. Pt has not needed to use his PRN dilaudid since 1043 yesterday AM. Pt with good pain control and CHAIM well managed at this time per Pt. report. Pt denies other concerns at this time.? T/w available as needed.
--- NOTE | 2024-03-22 11:53 | PM.GIPN ---
Subjective Subjective Date of Service: 03/22/24 Interval History: no reported bleeding Critical Care Time (minutes): 0 Physical Exam Vital Signs: Vital Signs: Last Vital Signs Temp 98.3 F 03/22/24 08:00 Pulse 68 03/22/24 08:00 Resp 18 03/22/24 08:00 BP 120/73 03/22/24 08:00 Pulse Ox 100 03/22/24 08:00 O2 Del Method Room Air 03/22/24 08:00 O2 Flow Rate 2 03/20/24 17:59 BMI result Body Mass Index 30.1 Const: General: cooperative GI: Other: abdomen is soft and not tender Objective Data Labs 03/22/24 06:58 03/21/24 07:34 Labs: Laboratory Results - last 24 hr 03/21/24 03/22/24 14:58 06:58 WBC 3.3 L 2.2 L RBC 2.66 L 2.45 L Hgb 8.5 L 7.8 L Hct 25.0 L 23.2 L MCV 94.0 94.7 MCH 32.0 31.8 MCHC 34.0 33.6 RDW 16.1 H 16.0 Plt Count 68 L 64 L MPV 12.2 11.5 Absolute Nucleated RBC 0.000 0.000 Nucleated RBC % (auto) 0.0 0.0 Procedures Date of Service Date of Service: 03/22/24 Progress Note: A&P Assessment and plan (1) Acute upper GI bleed: Status: Acute Assessment and Plan: He appears stable without active bleeding. He is advised to stay for iv octreotide and ultrasound imaging, but wishes to leave against my medical advice. Followup to be arranged at [facility] for continued care of his GI issues. Time Spent With Patient Time: Total time managing care of this patient today ____ minutes. Quality Stroke Does the patient have a stroke diagnosis?: No VTE Prior VTE?: No VTE Risk Level:: Medical - moderate - high VTE Device Contraindication: N/A - Device Ordered VTE Drug Contraindication: Treatment Not Indicated
--- NOTE | 2024-03-22 13:40 | MHC.CM.PN ---
PT LEAVING AMA, REPORTING HE WOULD WALK TO A BUS STOP TO GET TO THE TRAIN STATION AND BEG FOR A TICKET IF HE DID NOT HAVE ENOUGH ON HIS [employer] CARD. BUSES NOT RUNNING THIS ROUTE ON SUNDAYS GELY ARRANGED
--- NOTE | 2024-03-24 15:32 | PM.DS ---
DS: Providers Provider Date of Service: 03/22/24 Date of admission: 03/20/24 15:50 Primary care physician: Unknown Physician Consults: 03/20/24 15:05 Addiction Medicine Stat Consulting Provider: Addiction Covering Reason for consultation: on suboxone chronic pain not treated, being admitted for UGIB Has provider been notified: Yes 03/20/24 15:52 Consult to Gastroenterology Routine Consulting Provider: Silviano Camarillo Reason for consultation: ugi bleed Has provider been notified: No 03/22/24 08:14 Consult to Care Team Routine Comment: Reason for consultation: Medically ready for discharge DS: Diagnosis Discharge Diagnosis (1) Acute upper GI bleed: Status: Acute DS: Summary Hospital Course Hospital Course: History of Present Illness Date of Service: 03/20/24 Chief Complaint: Hematemesis 58-year-old gentleman with past medical history significant for cirrhosis, due to hepatitis-C treated and recently tested clear, no prior history of hematemesis, no prior EGD or colonoscopy, presented to [facility] today from [facility], where he was admitted 5 days ago from [facility] for psychiatric care, patient with prior history of IV drug use now on Suboxone, history of mood disorder, PTSD, suicide attempts patient was given ibuprofen recently after lunch today he vomited large amount of blood with clots x1 associated with abdominal pain, he provide history of black stools 1 month ago while he was admitted at [facility] but no workup was obtained, and ED noted to have hematocrit of 21.8, hemoglobin 7.5, platelet of 97, ammonia level of 68, albumin 2.2, calcium 7.7, blood sugar 122 mildly elevated LFTs patient in the emergency room treated with IV Protonix, and placed on IV Protonix drip, IV Sandostatin, 1 unit of packed RBC ordered patient evaluated by Gastroenterology and is scheduled to undergo upper endoscopy, at present patient denies abdominal pain no recent black stools, no recurrent episodes of vomitus while in the emergency room, he is being admitted to [facility] with upper GI bleed concern for variceal/peptic ulcer disease/gastritis. Addendum: Underwent upper endoscopy by Dr. Camarillo noted to have large varices 1 with adherent clot and no active bleeding, 2 bands placed at site of clot, [address] Camarillo recommend to continue octreotide for 72 hours, monitor hematocrit transfuse as needed If patient noted to have recurrent bleed will consider transferring to tertiary care center for tips procedure,to blood [facility], [facility] or back to [facility] where patient receives his treatment. Patient order to have 1 unit of packed RBC follow CBC post transfusion transfuse as needed. Hospital course: 58/m with Hep C (treated), former alcoholic, transferred from [facility] to [facility] (inpatient Psych facility), residing there for the last 4-5 days for treatment of depression and self-harm thoughts. He was having bloody emesis and thus was brought to the ED for evaluation. He was noted to be anemic and underwent emergent EGD with the following findings and recommendations by Dr. Camarillo: Large varices, one with adherent clot and no active bleeding Two bands placed at the site of the clot Four bands placed distally Recommendations: Monitor hemoglobing and hematocrit Continue octreotide Continue octreotide for 72 hours Advance diet starting with clears The patient was transfused 3 units of RBC. His hemoglobin and hematocrit trended on the low side but stable. There was a very high risk of rebleeding, and as such, GI recommended very close monitoring, to complete 72 hours of octreotide, and there was a very low threshold for rescoping. Unfortunately, he decided he was leaving against medical advice. He was spoken to by Dr. Camarillo. I also talked to him about following through with our plan to continue monitoring. He understood he was risking his health by leaving against medical advice, that he could end up bleeding profusely and could even . In the end, I offered to go back and talk to him again, but unfortunately, he would not wait. Of note he was evaluated by CARE team with no indication for inpatient Psych hospitalization prior to making decision to leave [facility] Final diagnoses: 1. Variceal bleed 2. Acute blood loss anemia 3. upper GI bleeding 4. Cirrhosis of liver Time Attestation Discharge Coordination Time (in mins): 30 Quality: Safe Use of Opioids Does Pt have an Active Cancer Diagnosis on the Problem List?: No Quality: Stroke Does the patient have a stroke diagnosis?: No Physical Exam Vital Signs: Vital Signs: Last Vital Signs Temp 98.3 F 03/22/24 08:00 Pulse 68 03/22/24 08:00 Resp 18 03/22/24 08:00 BP 120/73 03/22/24 08:00 Pulse Ox 100 03/22/24 08:00 O2 Del Method Room Air 03/22/24 08:00 O2 Flow Rate 2 03/20/24 17:59 BMI result Body Mass Index 30.1 Discharge Plan Discharge Anticipated Discharge Date/Time: 03/22/24 11:16 Patient Disposition: Left Against Medical Advice Discharge Diagnosis: Esophageal varices, acute blood loss anemia, gi bleeding Referrals: Physician,Unknown J [Primary Care Provider] - 1 Week Discharge Medications: No Action gabapentin 600 mg Tablet 600 mg PO TID olanzapine 7.5 mg Tablet 7.5 mg PO BEDTIME ibuprofen [Motrin] 400 mg Tablet 400 mg PO Q8H PRN (Reason: Pain) ondansetron 4 mg Tablet,Disintegrating 4 mg PO Q6H PRN (Reason: Nausea And Vomiting) docusate sodium 100 mg Tablet 100 mg PO BID PRN (Reason: Constipation) acetaminophen 325 mg Capsule 650 mg PO Q4H PRN (Reason: Pain) lisdexamfetamine [Vyvanse] 40 mg Capsule 40 mg PO DAILY buprenorphine-naloxone [Suboxone] 8-2 mg Film 1 film BUCCAL TID Discharge Orders: Discharge Order (Routine); Ordered 03/24/24 Ordered By: Ken Solares Diet: Advance to usual diet Activity on Discharge: As tolerated Print Language: Montenegrin Care Plan Goals: unfortunately left ama, goal of care was to unsure no further risk of bleeding and address bleeding as needed Health Concerns: gi bleeding, anemia, acute blood loss anemia, variceal bleed Plan of Treatment: follow up with your doctors in a week Assessment: see above Discharge Date/Time: 03/22/24 12:36
--- NOTE | 2024-03-25 15:31 | P.DS_ITS ---
DS: Providers Provider Date of admission: 03/20/24 15:50 Primary care physician: Unknown Physician Consults: 03/20/24 15:05 Addiction Medicine Stat Consulting Provider: Addiction Covering Reason for consultation: on suboxone chronic pain not treated, being admitted for UGIB Has provider been notified: Yes 03/20/24 15:52 Consult to Gastroenterology Routine Consulting Provider: Silviano Camarillo Reason for consultation: ugi bleed Has provider been notified: No 03/22/24 08:14 Consult to Care Team Routine Comment: Reason for consultation: Medically ready for discharge DS: Diagnosis Discharge Diagnosis (1) Acute upper GI bleed: Status: Acute DS: Summary Hospital Course Hospital Course: History of Present Illness Date of Service: 03/20/24 Chief Complaint: Hematemesis 58-year-old gentleman with past medical history significant for cirrhosis, due to hepatitis-C treated and recently tested clear, no prior history of hematemesis, no prior EGD or colonoscopy, presented to [facility] today from [facility], where he was admitted 5 days ago from [facility] for psychiatric care, patient with prior history of IV drug use now on Suboxone, history of mood disorder, PTSD, suicide attempts patient was given ibuprofen recently after lunch today he vomited large amount of blood with clots x1 associated with abdominal pain, he provide history of black stools 1 month ago while he was admitted at [facility] but no workup was obtained, and ED noted to have hematocrit of 21.8, hemoglobin 7.5, platelet of 97, ammonia level of 68, albumin 2.2, calcium 7.7, blood sugar 122 mildly elevated LFTs patient in the emergency room treated with IV Protonix, and placed on IV Protonix drip, IV Sandostatin, 1 unit of packed RBC ordered patient evaluated by Gastroenterology and is scheduled to undergo upper endoscopy, at present patient denies abdominal pain no recent black stools, no recurrent episodes of vomitus while in the emergency room, he is being admitted to [facility] with upper GI bleed concern for variceal/peptic ulcer disease/gastritis. Addendum: Underwent upper endoscopy by Dr. Camarillo noted to have large varices 1 with adherent clot and no active bleeding, 2 bands placed at site of clot, [address] Camarillo recommend to continue octreotide for 72 hours, monitor hematocrit transfuse as needed If patient noted to have recurrent bleed will consider transferring to tertiary care center for tips procedure,to blood [facility], [facility] or back to [facility] where patient receives his treatment. Patient order to have 1 unit of packed RBC follow CBC post transfusion transfuse as needed. Hospital course: 58/m with Hep C (treated), former alcoholic, [place] [facility] [place] [facility] (inpatient Psych facility), residing there for the last 4-5 days for treatment of depression and self-harm thoughts. He was having bloody emesis and thus was brought to the ED for evaluation. He was noted to be anemic and underwent emergent EGD with the following findings and recommendations by Dr. Camarillo: * Large varices, one with adherent clot and no active bleeding * Two bands placed at the site of the clot * Four bands placed distally Recommendations: * Monitor hemoglobing and hematocrit * Continue octreotide * Continue octreotide for 72 hours * Advance diet starting with clears The patient was transfused 3 units of RBC. His hemoglobin and hematocrit trended on the low side but stable. There was a very high risk of rebleeding, and as such, GI recommended very close monitoring, to complete 72 hours of octreotide, and there was a very low threshold for rescoping. Unfortunately, he decided he was leaving against medical advice. He was spoken to by Dr. Camarillo. I also talked to him about following through with our plan to continue monitoring. He understood he was risking his health by leaving against medical advice, that he could end up bleeding profusely and could even . In the end, I offered to go back and talk to him again, but unfortunately, he would not wait. Of note he was evaluated by CARE team with no indication for inpatient Psych hospitalization prior to making decision to leave [place] Final diagnoses: 1. Variceal bleed 2. Acute blood loss anemia 3. upper GI bleeding 4. Cirrhosis of liver Physical Exam Vital Signs: Vital Signs: Last Vital Signs Temp 98.3 F 03/22/24 08:00 Pulse 68 03/22/24 08:00 Resp 18 03/22/24 08:00 BP 120/73 03/22/24 08:00 Pulse Ox 100 03/22/24 08:00 O2 Del Method Room Air 03/22/24 08:00 O2 Flow Rate 2 03/20/24 17:59 BMI result Body Mass Index 30.1 Discharge Plan Discharge Anticipated Discharge Date/Time: 03/22/24 11:16 Patient Disposition: Left Against Medical Advice Discharge Diagnosis: Esophageal varices, acute blood loss anemia, gi bleeding Referrals: Physician,Unknown J [Primary Care Provider] - 1 Week Discharge Medications: No Action gabapentin 600 mg Tablet 600 mg PO TID olanzapine 7.5 mg Tablet 7.5 mg PO BEDTIME ibuprofen [Motrin] 400 mg Tablet 400 mg PO Q8H PRN (Reason: Pain) ondansetron 4 mg Tablet,Disintegrating 4 mg PO Q6H PRN (Reason: Nausea And Vomiting) docusate sodium 100 mg Tablet 100 mg PO BID PRN (Reason: Constipation) acetaminophen 325 mg Capsule 650 mg PO Q4H PRN (Reason: Pain) lisdexamfetamine [Vyvanse] 40 mg Capsule 40 mg PO DAILY buprenorphine-naloxone [Suboxone] 8-2 mg Film 1 film BUCCAL TID Discharge Orders: Discharge Order (Routine); Ordered 03/24/24 Ordered By: Ken Solares Diet: Advance to usual diet Activity on Discharge: As tolerated Print Language: Kuwaiti Care Plan Goals: unfortunately left ama, goal of care was to unsure no further risk of bleeding and address bleeding as needed Health Concerns: gi bleeding, anemia, acute blood loss anemia, variceal bleed Plan of Treatment: follow up with your doctors in a week Assessment: see above Discharge Date/Time: 03/22/24 12:36
== END 2024-03-22 12:36 | disposition left against medical advice (07) | DRG 280 ==
LOC: HO.ED 15:03 → HO.EDOVER 16:03 → HO.IMC 17:02
PROVIDERS: Internal Medicine Gastroenterology; Admitting Provider Hospitalist; Emergency Provider Emergency Medicine; Visit Provider Internal Medicine
PROC: 06L38CZ Occlusion of Esophageal Vein with Extraluminal Device, Via Natural or Artificial Opening Endoscopic (ICD-10-PCS; principal; 2024-03-20 15:20)
DX: K70.30 Alcoholic cirrhosis of liver without ascites (principal); I85.11 Secondary esophageal varices with bleeding; D61.818 Other pancytopenia; E87.1 Hypo-osmolality and hyponatremia; D62 Acute posthemorrhagic anemia; F17.210 Nicotine dependence, cigarettes, uncomplicated; F39 Unspecified mood [affective] disorder; F11.20 Opioid dependence, uncomplicated; Z86.19 Personal history of other infectious and parasitic diseases; Z71.6 Tobacco abuse counseling; Z79.899 Other long term (current) drug therapy
CPT/HCPCS: 36415; 80048; 80076; 80307; 82140; 83690; 83735; 85025; 85027; 85610; 86850; 86900; 86901; 86923; 93005; 99285; J0330; J0696; J1100; J1170; J2250; J2354; J2371; J2405; J2470; J2598; J2704; J3010; J3430; P9016; P9047; S9485

== ENCOUNTER → 2024-03-20 14:03 | Outpatient (BNV) | payer OTHER, SELFPAY | PROVIDERS: Admitting Provider Hospitalist; Emergency Provider Emergency Medicine; Visit Provider Internal Medicine Cardiovascular Disease | DX: K92.2 Gastrointestinal hemorrhage, unspecified (principal) | CPT/HCPCS: 93010 ==

== ENCOUNTER → 2024-03-20 15:50 | Outpatient (BNV) | payer OTHER, SELFPAY | PROVIDERS: Admitting Provider Hospitalist; Emergency Provider Emergency Medicine; Visit Provider Hospitalist | DX: K92.2 Gastrointestinal hemorrhage, unspecified (principal); Z53.29 Procedure and treatment not carried out because of patient's decision for other reasons | CPT/HCPCS: 99223; 99233; 99238 ==